=== PATIENT | female | born 1940 | race Caucasian/White ===

== ENCOUNTER 2022-09-29 18:04 | Emergency (ER) | payer OTHER, MEDICARE ==
[2022-09-29] MEDS ORDERED: Ondansetron PF 4 MG/2 ML Vial ONE (19:30)
[2022-09-29] MEDS ORDERED: Morphine 2 MG/ML VIAL ONE (19:31)
[2022-09-29] MEDS ORDERED: Ketorolac Tromethamine 30 MG/ML VIAL ONE (21:24)
== END 2022-09-29 21:57 | disposition home or self-care (01) ==
LOC: CSHERS 18:04
DX: S13.4XXA Sprain of ligaments of cervical spine, initial encounter (principal); S43.402A Unspecified sprain of left shoulder joint, initial encounter; S00.83XA Contusion of other part of head, initial encounter; S80.02XA Contusion of left knee, initial encounter; Z87.891 Personal history of nicotine dependence; J44.9 Chronic obstructive pulmonary disease, unspecified; W01.0XXA Fall on same level from slipping, tripping and stumbling without subsequent striking against object, initial encounter
CPT/HCPCS: 70450; 70486; 71250; 72125; 74177; 76377; 96374; 96375; J1885; J2272; J2405